=== PATIENT | male | born 1975 | race Caucasian/White ===

== ENCOUNTER 2017-10-07 15:04 | Emergency (ER) | payer MEDICAID ==
[~2017-10-07] VITALS: Ht 177.8 cm; Wt 70.2 kg
[~2017-10-07 15:04] MED LIST: DIL100C PO; HYDR-569 PO; IBUP-1984 PO
[2017-10-07] MEDS ORDERED: ketorolac trometh inj. 60 MG/2 ML VIAL IM ONE (15:40)
[2017-10-07 16:03] VITALS: BP 120/77
== END 2017-10-07 16:08 | disposition home or self-care (01) ==
LOC: ER 15:05
DX: M25.562 Pain in left knee (principal); G89.29 Other chronic pain; Z88.0 Allergy status to penicillin; Z88.8 Allergy status to other drugs, medicaments and biological substances
CPT/HCPCS: 96372; 99283; J1885

== ENCOUNTER 2018-06-23 14:11 | Emergency (ER) | payer MEDICAID ==
[~2018-06-23] VITALS: Ht 177.8 cm; Wt 73.8 kg
[~2018-06-23 14:11] MED LIST changes: +HYDR-4383 PO; -HYDR-569 PO
[2018-06-23 14:19] VITALS: BP 106/73
[2018-06-23] MEDS ORDERED: TRAM50TA2 PO (15:51)
== END 2018-06-23 16:04 | disposition home or self-care (01) ==
LOC: ER 14:12
DX: M25.561 Pain in right knee (principal); G89.29 Other chronic pain; Z88.0 Allergy status to penicillin; Z88.6 Allergy status to analgesic agent; Z79.899 Other long term (current) drug therapy; X58.XXXA Exposure to other specified factors, initial encounter; Y93.89 Activity, other specified; Y92.89 Other specified places as the place of occurrence of the external cause; Y99.8 Other external cause status
CPT/HCPCS: 73564; 99284

== ENCOUNTER 2019-09-19 11:46 | Emergency (ER) | payer MEDICAID ==
[~2019-09-19] VITALS: Ht 177.8 cm; Wt 80.0 kg
[2019-09-19 12:03] VITALS: BP 132/79
[2019-09-19] MEDS ORDERED: CLIN-90 PO (12:47)
== END 2019-09-19 13:10 | disposition home or self-care (01) ==
LOC: ER 11:46
DX: K65.0 Generalized (acute) peritonitis (principal); G89.29 Other chronic pain; Z88.0 Allergy status to penicillin; Z88.8 Allergy status to other drugs, medicaments and biological substances; Z79.899 Other long term (current) drug therapy
CPT/HCPCS: 99283